=== PATIENT | male | born 1970 | race Caucasian/White ===

== ENCOUNTER 2019-07-19 17:46 | Emergency (ER) | payer MEDICAID, OTHER ==
[~2019-07-19] VITALS: Ht 177.8 cm; Wt 103.4 kg
[2019-07-19] MEDS ORDERED: IBUP80TA PO (17:56)
--- NOTE | 2019-07-19 18:59 | REPVR ---
PROCEDURE INFORMATION: Exam: CT Head Without Contrast Exam date and time: 07/19/2019 6:37 PM Clinical history: 48 years old, male; Injury or trauma; Fall; Initial encounter; Concussion / head injury; Additional info: Blunt trauma TECHNIQUE: Imaging protocol: Computed tomography of the head without contrast. Radiation optimization: All CT scans at this facility use at least one of these dose optimization techniques: automated exposure control; mA and/or kV adjustment per patient size (includes targeted exams where dose is matched to clinical indication); or iterative reconstruction. COMPARISON: No relevant prior studies available. FINDINGS: Brain: An acute comminuted and depressed right frontoparietal skull fracture is noted along the right coronal suture. There is 7 mm of depression of the fracture fragments. A nondepressed component of the fracture extends anteriorly and inferiorly into the right sphenoid wing. A small 7 mm epidural hematoma is noted around the depressed right frontoparietal fracture fragments. There is no significant mass effect. There is no midline shift. No cerebral edema is identified. Ventricles: No ventriculomegaly. Bones/joints: See above. Additionally, there is an acute minimally displaced fracture involving the lateral wall of the right orbit. A tiny amount of extraconal hemorrhage and air along the right lateral orbital wall is noted. There is no retrobulbar hemorrhage or proptosis. The globes are intact. Sinuses: Mild mucosal thickening is noted throughout the paranasal sinuses. Mastoid air cells: Visualized mastoid air cells are well aerated. Soft tissues: A left occipital scalp hematoma is present. IMPRESSION: 1. Acute comminuted and depressed right frontoparietal skull fracture, extending inferiorly into the right sphenoid wing. There is 7 mm of depression of the fracture fragments with a small epidural hematoma around the fragments. 2. Acute fracture of the right lateral orbital wall Electronically signed by: Augustine Hansen On 07/19/2019 18:59:10 PM
--- NOTE | 2019-07-19 19:02 | REPVR ---
PROCEDURE INFORMATION: Exam: CT Cervical Spine Without Contrast Exam date and time: 07/19/2019 6:37 PM Clinical history: 48 years old, male; Injury or trauma; Fall; Initial encounter; Concussion /head injury; Additional info: Blunt trauma TECHNIQUE: Imaging protocol: Computed tomography images of the cervical spine without contrast. Radiation optimization: All CT scans at this facility use at least one of these dose optimization techniques: automated exposure control; mA and/or kV adjustment per patient size (includes targeted exams where dose is matched to clinical indication); or iterative reconstruction. COMPARISON: No relevant prior studies available. FINDINGS: Vertebrae: No acute fracture. Normal alignment. Discs/Spinal canal/Neural foramina: Mild degenerative changes of the cervical spine are present. There is no significant spinal canal stenosis. Soft tissues: Unremarkable. Lungs: Lung apices are normal. IMPRESSION: No acute cervical spine fracture. Electronically signed by: Augustine Hansen On 07/19/2019 19:01:59 PM
--- NOTE | 2019-07-19 19:06 | REP ---
Left shoulder series: Three views. History: Pain, decreased range of motion. Trauma. Findings: The glenohumeral and acromioclavicular joints are normally aligned. No fracture or subluxation is seen. There is some diastases of the AC joint with mild deformity of the distal clavicle suggesting distal claviculectomy for prior trauma. No acute bony abnormality is seen. Impression: No acute fracture or subluxation seen. Mild deformity of the distal clavicle, question postop versus old trauma. Electronically Signed by Tiago Mitchell MD 07/19/2019 07:11 P
--- NOTE | 2019-07-19 19:09 | REPVR ---
PROCEDURE INFORMATION: Exam: CT Maxillofacial Without Contrast Exam date and time: 07/19/2019 6:37 PM Clinical history: 48 years old, male; Injury or trauma; Fall; Initial encounter; Concussion /head injury; Loss of consciousness not known; Additional info: Blunt trauma TECHNIQUE: Imaging protocol: Computed tomography images of the face without contrast. Radiation optimization: All CT scans at this facility use at least one of these dose optimization techniques: automated exposure control; mA and/or kV adjustment per patient size (includes targeted exams where dose is matched to clinical indication); or iterative reconstruction. COMPARISON: No relevant prior studies available. FINDINGS: Orbits: See Bones/joints Finding. A tiny amount of extraconal hemorrhage and air along the right lateral orbital wall is noted. There is no retrobulbar hemorrhage or proptosis. The globes are intact. An acute nondisplaced right zygomatic arch fracture is noted. Sinuses: Moderate mucosal thickening is present in the ethmoid air cells and the right maxillary sinus. Bones/joints: An acute comminuted and depressed right frontoparietal skull fracture is noted along the right coronal suture. There is 7 mm of depression of the fracture fragments. A nondepressed component of the fracture extends anteriorly and inferiorly into the right sphenoid wing and the right temporal squama. A small 7 mm epidural hematoma is noted around the depressed right frontoparietal fracture fragments. There is an acute minimally displaced fracture involving the lateral wall of the right orbit. IMPRESSION: 1. Acute comminuted and depressed right frontoparietal skull fracture, extending inferiorly into the right sphenoid wing and right temporal squama. There is 7 mm of depression of the fracture fragments with a small epidural hematoma around the fragments. 2. Acute fractures involving the right lateral orbital wall and right zygomatic arch Electronically signed by: Augustine Hansen On 07/19/2019 19:09:06 PM
[2019-07-19 19:19] LABS: HEMATOCRIT 45.8 % (42.0-52.0); HEMOGLOBIN 15.2 g/dl (13.5-17.5); MEAN CORPUSCULAR HGB CONC 33.2 g/dl (32.0-36.5); MEAN CORPUSCULAR VOLUME 93.3 fl (80.0-96.0); PLATELET COUNT, AUTOMATED 229 10^3/uL (150-450); RED BLOOD COUNT 4.91 10^6/uL (4.30-6.10); WHITE BLOOD COUNT 7.1 10^3/uL (4.0-10.0)
[2019-07-19 19:29] LABS: INR 1.12; PROTHROMBIN TIME 14.1 SECONDS (11.8-14.0)
[2019-07-19 19:30] LABS: PARTIAL THROMBOPLASTIN TIME 23.4 SECONDS (25.0-38.4)
[2019-07-19] MEDS ORDERED: VANCOMYCIN HCL 1,000 MG, VIAL MATE ADAPTER 1 EACH in D5W 250 ML IV ONE (19:30)
[2019-07-19] MEDS ORDERED: CEFEPIME HCL 2 GM in D5W MINI-BAG PLUS 50 ML IV ONE (19:30)
[2019-07-19 19:40] LABS: ALBUMIN 3.8 GM/DL (3.2-5.2); ALT/SGPT 59 U/L (12-78); BILIRUBIN,TOTAL 0.8 MG/DL (0.2-1.0); BLOOD UREA NITROGEN 17 MG/DL (7-18); CALCIUM LEVEL 9.4 MG/DL (8.5-10.1); CARBON DIOXIDE LEVEL 29 MEQ/L (21-32); CHLORIDE LEVEL 107 MEQ/L (98-107); CREATININE FOR GFR 1.09 MG/DL (0.70-1.30); GLOMERULAR FILTRATION RATE > 60.0 (>60); GLUCOSE, FASTING 106 MG/DL (70-100); POTASSIUM SERUM 3.9 MEQ/L (3.5-5.1); SODIUM LEVEL 141 MEQ/L (136-145); TOTAL PROTEIN 8.2 GM/DL (6.4-8.2)
[2019-07-19] MEDS ORDERED: ONDANSETRON 4MG/2ML VIAL (J2405) IV ONE (20:30)
[2019-07-19] MEDS ORDERED: MORPHINE 2 MG/ML 1ML VIAL (J2270) IV ONE (20:30)
[2019-07-19 20:37] VITALS: BP 158/92
== END 2019-07-19 20:39 | disposition short-term general hospital (02) ==
LOC: M ED 17:46
DX: S02.0XXB Fracture of vault of skull, initial encounter for open fracture (principal); S06.4X0A Epidural hemorrhage without loss of consciousness, initial encounter; S02.841A Fracture of lateral orbital wall, right side, initial encounter for closed fracture; S02.40EA Zygomatic fracture, right side, initial encounter for closed fracture; W17.89XA Other fall from one level to another, initial encounter; Y92.89 Other specified places as the place of occurrence of the external cause; R42 Dizziness and giddiness; Z79.899 Other long term (current) drug therapy; F17.220 Nicotine dependence, chewing tobacco, uncomplicated
CPT/HCPCS: 70450; 70486; 72125; 73030; 80053; 85027; 85610; 85730; 87040; 96374; 96375; 99285; J0692; J2270; J2405; J3370

== ENCOUNTER 2019-10-03 17:34 | Emergency (ER) | payer OTHER ==
[~2019-10-03] VITALS: Ht 175.3 cm; Wt 103.1 kg
[~2019-10-03 17:34] MED LIST: IBUP80TA PO
[2019-10-03] MEDS ORDERED: NORC1TAB7 PO (19:00)
[2019-10-03] MEDS ORDERED: LIDO4CRE4 TOP (19:00)
[2019-10-03 19:08] VITALS: BP 147/89
== END 2019-10-03 19:08 | disposition home or self-care (01) ==
LOC: M ED 17:34
DX: S46.012A Strain of muscle(s) and tendon(s) of the rotator cuff of left shoulder, initial encounter (principal); X58.XXXA Exposure to other specified factors, initial encounter; Y92.89 Other specified places as the place of occurrence of the external cause

== ENCOUNTER 2019-11-15 11:26 | Outpatient (RCR) | payer OTHER ==
[~2019-11-15 11:26] MED LIST changes: +LIDO4CRE4 TOP; +NORC1TAB7 PO
== END 2019-11-18 ==
LOC: M PT 11:26
PROVIDERS: ATTEND Orthopaedic Surgery
DX: Z47.89 Encounter for other orthopedic aftercare (principal); Z98.890 Other specified postprocedural states

== ENCOUNTER 2019-12-14 11:30 | Outpatient (RCR) | payer OTHER | END 2019-12-19 | LOC: M PT 11:30 | PROVIDERS: ATTEND Orthopaedic Surgery | DX: Z98.890 Other specified postprocedural states (principal) ==

== ENCOUNTER 2020-06-14 08:34 | Emergency (ER) | payer OTHER ==
[~2020-06-14] VITALS: Ht 175.3 cm; Wt 100.1 kg
[2020-06-14 09:54] LABS: BASO # 0.1 10^3/uL (0.0-0.2); BASO % 1.3 % (0.0-1.0); EOS # 0.3 10^3/uL (0.0-0.5); EOS % 4.5 % (0.0-3.0); HEMATOCRIT 50.3 % (42.0-52.0); HEMOGLOBIN 16.5 g/dl (13.5-17.5); LYMPH # 1.9 10^3/uL (1.5-5.0); LYMPH % 26.6 % (24.0-44.0); MEAN CORPUSCULAR HEMOGLOBIN 29.9 pg (27.0-33.0); MEAN CORPUSCULAR HGB CONC 32.8 g/dl (32.0-36.5); MEAN CORPUSCULAR VOLUME 91.3 fl (80.0-96.0); MONO # 0.5 10^3/uL (0.0-0.8); MONO % 6.5 % (0.0-5.0); NEUTROPHILS # 4.3 10^3/uL (1.5-8.5); NEUTROPHILS % 60.8 % (36.0-66.0); PLATELET COUNT, AUTOMATED 230 10^3/uL (150-450); RED BLOOD COUNT 5.51 10^6/uL (4.30-6.10); WHITE BLOOD COUNT 7.1 10^3/uL (4.0-10.0)
[2020-06-14 10:20] LABS: ALBUMIN 4.1 GM/DL (3.2-5.2); ALT/SGPT 105 U/L (12-78); BILIRUBIN,DIRECT < 0.1 MG/DL (0.0-0.2); BILIRUBIN,TOTAL 1.2 MG/DL (0.2-1.0); TOTAL PROTEIN 8.9 GM/DL (6.4-8.2)
--- NOTE | 2020-06-14 11:02 | REPVR ---
PROCEDURE INFORMATION: Exam: XR Chest, 1 View Exam date and time: 06/14/20 (10:38am) Age: 49 years old Clinical indication: SOB, dyspnea, cough TECHNIQUE: Imaging protocol: Portable CXR Views: 1 view COMPARISON: No relevant prior studies available FINDINGS: Lungs: Unremarkable. No consolidation. Pleural space: Unremarkable. No pleural effusions. No pneumothorax. Heart/Mediastinum: Unremarkable. No cardiomegaly. Bones/joints: Unremarkable. IMPRESSION: No acute findings. Clear lung anderson. Electronically signed by: Jennifer Kay On 06/14/2020 11:02:25 AM
[2020-06-14 12:00] VITALS: BP 156/104
[2020-06-14] MEDS ORDERED: LISI-542 PO (12:22)
[2020-06-14 12:56] LABS: HEPATITIS B SURFACE ANTIGEN NEGATIVE (NEGATIVE)
[2020-06-14 15:57] LABS: HEPATITIS B CORE ANTIBODY IGM NEGATIVE (NEGATIVE)
[2020-06-14 15:59] LABS: HEPATITIS A ANTIBODY IGM NEGATIVE (NEGATIVE)
[2020-06-14 16:03] LABS: HEPATITIS C VIRUS ABY INDEX > 11.0 INDEX (<0.8)
--- NOTE | 2020-06-14 18:07 | ECGEPIP ---
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 Order Number: [id number] Reading MD: Imer Arauz Measurements Intervals [place] Rate: 101 P: 12 ME: 147 QRS: 8 QRSD: 101 T: 15 QT: 350 QTc: 455 Interpretive Statements SINUS TACHYCARDIA Comparison tracing not on file Electronically Signed on 06-14-2020 18:06:57 EDT by Imer Arauz
== END 2020-06-14 12:15 | disposition home or self-care (01) ==
LOC: M ED 08:34
DX: J20.9 Acute bronchitis, unspecified (principal); R79.9 Abnormal finding of blood chemistry, unspecified; R00.0 Tachycardia, unspecified; J62.8 Pneumoconiosis due to other dust containing silica; Z11.59 Encounter for screening for other viral diseases; Z79.899 Other long term (current) drug therapy

== ENCOUNTER → 2021-09-16 | Outpatient (CLI) | payer OTHER ==
[~2021-09-16] MED LIST changes: +LISI5TAB11 PO
== END ==
LOC: M RAD 18:44
PROVIDERS: ATTEND Physician Assistant Medical
DX: R05.9 Cough, unspecified (principal); R07.9 Chest pain, unspecified

== ENCOUNTER 2025-04-12 10:26 | Emergency (ER) | payer OTHER ==
[~2025-04-12] VITALS: Ht 175.3 cm; Wt 86.0 kg
[~2025-04-12 10:26] MED LIST changes: -LIDO4CRE4 TOP; +LIDO5CRE7 TOP
[2025-04-12 11:45] LABS: BASO # 0.1 10^3/uL (0.0-0.2); BASO % 0.9 % (0.0-1.0); EOS # 0.1 10^3/uL (0.0-0.5); EOS % 1.4 % (0.0-3.0); LYMPH # 1.4 10^3/uL (1.5-5.0); LYMPH % 20.2 % (24.0-44.0); MONO # 0.5 10^3/uL (0.0-0.8); MONO % 6.6 % (2.0-8.0); NEUTROPHILS # 4.9 10^3/uL (1.5-8.5); NEUTROPHILS % 70.8 % (36.0-66.0); PLATELET COUNT, AUTOMATED 227 10^3/uL (150-450)
[2025-04-12 11:57] LABS: INR 1.0
[2025-04-12 12:17] LABS: ALT/SGPT 47 U/L (7.0-40); AST/SGOT 45 U/L (<34); CK-MB VALUE MASS < 1.0 NG/ML (<3.6)
[2025-04-12 12:31] LABS: CPK CREATINE PHOSPHOKINASE 173 U/L (46-171)
[2025-04-12 13:16] LABS: CK-MB VALUE MASS 1.2 NG/ML (<3.6)
[2025-04-12 13:18] LABS: CPK CREATINE PHOSPHOKINASE 157 U/L (46-171); MB/CK RELATIVE INDEX 0.76 (< OR =4)
[2025-04-12] MEDS ORDERED: ISOVUE-370 76% 100 ML VIAL As Ordered ONE (13:29)
[2025-04-12 14:05] VITALS: BP 159/95
[2025-04-12 14:15] VITALS: O2SAT 95
[2025-04-12] MEDS ORDERED: HOME MED LIST COMPLETE! XX SCH (14:30)
[2025-04-12] MEDS ORDERED: ACET-897 PO (14:30)
[2025-04-12] MEDS ORDERED: LISI10TA22 PO (14:32)
[2025-04-12] MEDS: ASPIRIN 81 MG CHEWABLE TABLET PO ONE (14:36)
[2025-04-12 14:48] VITALS: TEMP 98.7
== END 2025-04-12 14:48 | disposition home or self-care (01) ==
LOC: M ED 10:26
DX: I10 Essential (primary) hypertension (principal); R51.9 Headache, unspecified
CPT/HCPCS: 36415; 70450; 71045; 71275; 80047; 80076; 82550; 82553; 83690; 84484; 85025; 85610; 93005; 93041; 94760; 99285; Q9967

== ENCOUNTER → 2025-04-27 | Outpatient (REF) | payer OTHER ==
[~2025-04-27] MED LIST changes: +ACET-897 PO; +LISI10TA22 PO
== END ==
LOC: M SFHCLERA 07:31
PROVIDERS: ATTEND Internal Medicine
DX: Z53.9 Procedure and treatment not carried out, unspecified reason (principal); B18.2 Chronic viral hepatitis C; I10 Essential (primary) hypertension